=== PATIENT | female | born 1980 | race American Indian/Alaskan Native ===

== ENCOUNTER 2017-10-27 23:46 | Emergency (ER) | payer SELFPAY ==
[2017-10-28 00:21] VITALS: BP 139/76
[2017-10-28] MEDS ORDERED: MOTRIN PO ONE (00:22)
[2017-10-28 00:55] LABS: HCG Qualitative,Urine Negative (Negative)
--- NOTE | 2017-10-28 01:33 | XRay Report ---
FINAL REPORT EXAM: XR SPINE LUMBOSACRAL 2-3V HISTORY: left lower back pain COMPARISON: None available. FINDINGS: Three views of the lumbar spine obtained. Lumbar vertebral body heights and disc heights are preserved. Pedicles are intact. No spondylolisthesis. Incomplete fusion of the posterior elements at the S1 level, anatomic variant. IMPRESSION: Normal height and alignment of the lumbar spine.
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
== END 2017-10-28 03:04 | disposition home or self-care (01) ==
LOC: ED 23:46
DX: S39.012A Strain of muscle, fascia and tendon of lower back, initial encounter (principal); F17.200 Nicotine dependence, unspecified, uncomplicated; Z98.51 Tubal ligation status; X50.0XXA Overexertion from strenuous movement or load, initial encounter; Y93.89 Activity, other specified; Y92.69 Other specified industrial and construction area as the place of occurrence of the external cause; Y99.8 Other external cause status
CPT/HCPCS: 72100; 81025; 99284